=== PATIENT | male | born 1970 | race Caucasian/White ===

== ENCOUNTER → 2017-10-24 | Outpatient (CLI) | payer BC ==
[2017-10-24 13:36] LABS: HEMATOCRIT 49.6 % (42.0-52.0); MEAN CELL VOLUME 92 fl (80.0-100.0); MEAN CORPUSCULAR HEMOGLOBIN 31 pg (27.0-31.0); MEAN CORPUSCULAR HGB CONC 34 g/dl (33.0-37.0); MEAN PLATELET VOLUME 12.2 fl (7.4-10.4); PLATELET COUNT 164 K/mm3 (130-400); RED BLOOD COUNT 5.42 M/mm3 (4.20-5.60); WHITE BLOOD COUNT 6.6 K/mm3 (4.8-10.8)
[2017-10-24 13:47] LABS: ADJUSTED CALCIUM 9.6 mg/dL (8.4-10.2); ALANINE AMINOTRANSFERASE 30 U/L (21-72); ALBUMIN 4.5 gm/dL (3.5-5.0); ALKALINE PHOSPHATASE 51 U/L (50-136); ANION GAP 10 mmol/L (7-16); BILIRUBIN,TOTAL 2.6 mg/dL (0.0-1.0); BLOOD UREA NITROGEN 12 mg/dL (9-20); CARBON DIOXIDE 29 mmol/L (22-30); CHLORIDE 101 mmol/L (98-107); CREATININE, serum 0.84 mg/dL (0.66-1.25); GLUCOSE 107 mg/dL (74-106); POTASSIUM 3.6 mmol/L (3.4-5.0); SODIUM 140 mmol/L (137-145); TOTAL PROTEIN 7.3 gm/dL (6.4-8.2)
[2017-10-24 14:03] LABS: TROPONIN-I < 0.012 ng/mL (0.000-0.034)
== END ==
LOC: COL.RAD 13:16
PROVIDERS: Internal Medicine
DX: R07.89 Other chest pain (principal)

== ENCOUNTER → 2019-03-12 | Outpatient (CLI) | payer BC | LOC: COL.RAD 13:22 | DX: N50.3 Cyst of epididymis (principal); N45.1 Epididymitis ==

== ENCOUNTER 2024-02-28 00:18 | Emergency (ER) | payer BC ==
[~2024-02-28] VITALS: Ht 175.3 cm; Wt 59.1 kg
[2024-02-28 00:26] VITALS: TEMP 98
[2024-02-28] MEDS ORDERED: SYNTHROID0.05 MG/TA PO (00:43)
[2024-02-28] MEDS ORDERED: PRINZIDE 12.5 M1 TA1 PO (00:44)
[2024-02-28] MEDS ORDERED: hydrALAZINE 20 MG/ML 1 ML VIAL IV ONE (01:00)
[2024-02-28 01:30] LABS: BASO # 0.1 K/mm3 (0.0-0.2); BASO % 0.5 % (0.0-2.0); EOS # 0.1 K/mm3 (0.0-0.7); EOS % 1.3 % (0.0-4.0); GRAN # 7.5 K/mm3 (1.4-6.5); GRAN % 67.1 % (42.2-75.2); HEMATOCRIT 47.4 % (42.0-52.0); HEMOGLOBIN 16.8 g/dl (13.5-18.0); LYMPH # 2.5 K/mm3 (1.2-3.4); LYMPH % 22.6 % (20.0-51.0); MEAN CELL VOLUME 89 fl (80.0-100.0); MEAN CORPUSCULAR HEMOGLOBIN 32 pg (27-31); MEAN CORPUSCULAR HGB CONC 35 g/dl (33.0-37.0); MEAN PLATELET VOLUME 12.1 fl (7.4-10.4); MONO # 0.9 K/mm3 (0.1-0.6); MONO % 8.1 % (1.7-9.3); PLATELET COUNT 186 K/mm3 (130-400); REDCELL DISTRIBUTION WIDTH-CV 12.3 % (11.5-14.5)
[2024-02-28 01:50] LABS: ALANINE AMINOTRANSFERASE 27 U/L (0-55); ALBUMIN 3.9 g/dL (3.5-5.0); ALKALINE PHOSPHATASE 61 U/L (40-150); ANION GAP 12 mmol/L (7-16); AST,SGOT 22 U/L (5-34); BLOOD UREA NITROGEN 12 mg/dL (8-26); CHLORIDE 106 mEq/L (98-107); GLUCOSE 107 mg/dL (70-99); POTASSIUM 3.3 mEq/L (3.5-4.5); SODIUM 143 mEq/L (136-145)
[2024-02-28 01:59] LABS: TROPONIN-I < 0.010 ng/mL (0.00-0.033)
[2024-02-28 02:06] LABS: BILIRUBIN,TOTAL 1.1 mg/dL (0.2-1.2)
[2024-02-28 02:43] VITALS: BP 145/89; PULSE 73
[2024-02-28] MEDS ORDERED: APRESOLINE 25MG25 MG PO (12:10)
== END 2024-02-28 03:25 | disposition home or self-care (01) ==
LOC: COL.ER 00:18
PROVIDERS: Personal Emergency Response Attendant
DX: I10 Essential (primary) hypertension (principal); R07.89 Other chest pain; R00.0 Tachycardia, unspecified; Z79.899 Other long term (current) drug therapy
CPT/HCPCS: J0360

== ENCOUNTER 2024-02-28 10:32 | Emergency (ER) | payer BC ==
[~2024-02-28] VITALS: Ht 167.6 cm; Wt 81.8 kg
[~2024-02-28 10:32] MED LIST: PRINZIDE 12.5 M1 TA1 PO; SYNTHROID0.05 MG/TA PO
[2024-02-28 11:15] LABS: BASO % 0.3 % (0.0-2.0); GRAN # 10.9 K/mm3 (1.4-6.5); HEMATOCRIT 46.3 % (42.0-52.0); HEMOGLOBIN 16.6 g/dl (13.5-18.0); LYMPH % 7.9 % (20.0-51.0); MEAN CELL VOLUME 87 fl (80.0-100.0); MEAN CORPUSCULAR HEMOGLOBIN 31 pg (27-31); MEAN CORPUSCULAR HGB CONC 36 g/dl (33.0-37.0); MEAN PLATELET VOLUME 11.7 fl (7.4-10.4); MONO # 0.3 K/mm3 (0.1-0.6); MONO % 2.5 % (1.7-9.3); PLATELET COUNT 185 K/mm3 (130-400); RED BLOOD COUNT 5.33 M/mm3 (4.20-5.60); REDCELL DISTRIBUTION WIDTH-CV 12.2 % (11.5-14.5)
[2024-02-28] MEDS ORDERED: Ondansetron 4 MG/2 ML VIAL IV ONE (11:15)
[2024-02-28] MEDS ORDERED: Lisinopril 20 MG,hydroCHLOROthiazide 12.5 MG PO ONE (11:15)
[2024-02-28 11:33] LABS: ALANINE AMINOTRANSFERASE 23 U/L (0-55); ALBUMIN 3.8 g/dL (3.5-5.0); ALKALINE PHOSPHATASE 54 U/L (40-150); ANION GAP 10 mmol/L (7-16); AST,SGOT 18 U/L (5-34); BILIRUBIN,TOTAL 1.8 mg/dL (0.2-1.2); BLOOD UREA NITROGEN 10 mg/dL (8-26); CALCIUM 9.6 mg/dL (8.4-10.2); CHLORIDE 105 mEq/L (98-107); CREATININE, serum 0.65 mg/dL (0.72-1.25); GLUCOSE 127 mg/dL (70-99); SODIUM 136 mEq/L (136-145); TOTAL PROTEIN 6.7 g/dl (6.2-8.1)
[2024-02-28 11:40] LABS: TROPONIN-I < 0.010 ng/mL (0.00-0.033)
[2024-02-28] MEDS ORDERED: APRESOLINE 25MG25 MG PO (12:10)
[2024-02-28 12:20] VITALS: BP 138/97; PULSE 67; TEMP 98.1
== END 2024-02-28 12:31 | disposition home or self-care (01) ==
LOC: COL.ER 10:32
PROVIDERS: Emergency Medicine
DX: I10 Essential (primary) hypertension (principal); R11.2 Nausea with vomiting, unspecified; Z79.899 Other long term (current) drug therapy
CPT/HCPCS: J2405

== ENCOUNTER 2024-08-22 17:35 | Emergency (ER) | payer BC ==
[~2024-08-22] VITALS: Ht 172 cm; Wt 82.7 kg
[~2024-08-22 17:35] MED LIST changes: +APRESOLINE 25MG25 MG PO
[2024-08-22 17:46] VITALS: TEMP 98
[2024-08-22] MEDS ORDERED: hydrALAZINE 25 MG TAB PO ONE ×2 (20:00→20:30)
[2024-08-22] MEDS ORDERED: APRESOLINE 25MG25 MG PO (20:06)
[2024-08-22 20:49] VITALS: BP 155/107; PULSE 77
== END 2024-08-22 20:56 | disposition home or self-care (01) ==
LOC: COL.ER 17:35
DX: I10 Essential (primary) hypertension (principal); Z79.899 Other long term (current) drug therapy

== ENCOUNTER 2024-08-23 16:29 | Emergency (ER) | payer BC ==
[~2024-08-23] VITALS: Ht 172 cm; Wt 82.7 kg
[2024-08-23] MEDS ORDERED: Acetaminophen 500 MG TAB PO ONE (18:15)
[2024-08-23] MEDS ORDERED: hydrALAZINE 20 MG/ML 1 ML VIAL IV ONE (18:15)
[2024-08-23 18:47] LABS: BASO % 0.4 % (0.0-2.0); EOS % 0.1 % (0.0-4.0); GRAN # 8.3 K/mm3 (1.4-6.5); GRAN % 78.7 % (42.2-75.2); HEMATOCRIT 49.2 % (42.0-52.0); HEMOGLOBIN 17.4 g/dl (13.5-18.0); LYMPH # 1.5 K/mm3 (1.2-3.4); LYMPH % 14.2 % (20.0-51.0); MEAN CELL VOLUME 89 fl (80.0-100.0); MEAN CORPUSCULAR HEMOGLOBIN 31 pg (27-31); MEAN CORPUSCULAR HGB CONC 35 g/dl (33.0-37.0); MEAN PLATELET VOLUME 11.5 fl (7.4-10.4); MONO # 0.7 K/mm3 (0.1-0.6); MONO % 6.3 % (1.7-9.3); PLATELET COUNT 186 K/mm3 (130-400); RED BLOOD COUNT 5.55 M/mm3 (4.20-5.60)
[2024-08-23 19:12] LABS: BILIRUBIN,TOTAL 2.4 mg/dL (0.2-1.2); CALCIUM 9.5 mg/dL (8.4-10.2); CREATININE, serum 0.67 mg/dL (0.72-1.25); TOTAL PROTEIN 7.2 g/dl (6.2-8.1)
[2024-08-23 19:15] LABS: POTASSIUM 2.9 mEq/L (3.5-4.5)
[2024-08-23 19:18] LABS: TROPONIN-I 0.014 ng/mL (0.00-0.033)
[2024-08-23 19:25] LABS: TSH w REFLEX 0.376 uIU/mL (0.350-4.940)
[2024-08-23] MEDS ORDERED: LR 1,000 ML IV ONE (19:45)
[2024-08-23] MEDS ORDERED: Ketorolac 15 MG/ML VIAL IV ONE (20:00)
[2024-08-23 20:20] VITALS: TEMP 98.5
[2024-08-23] MEDS ORDERED: Morphine 4 MG/ML VIAL IV ONE (20:30)
[2024-08-23] MEDS ORDERED: Ondansetron 4 MG/2 ML VIAL IV ONE (20:30)
[2024-08-23 21:53] VITALS: BP 152/94; PULSE 78
== END 2024-08-23 21:54 | disposition home or self-care (01) ==
LOC: COL.ER 16:29
PROVIDERS: Emergency Medicine
DX: I10 Essential (primary) hypertension (principal); R51.9 Headache, unspecified; Z20.822 Contact with and (suspected) exposure to COVID-19
CPT/HCPCS: J0360; J0780; J1885; J2270; J2405; J7120